=== PATIENT | male | born 1970 | race African-American/Black ===

== ENCOUNTER → 2016-07-12 | Outpatient (REF) ==
[~2016-07-12] MED LIST: ARIP1TAB4 PO; DRIS50002 PO; FLUO20CA8 PO; FLUO20CA9 PO; PRAZ2CAP PO; SERO1TAB PO; ZOLO50TA PO
--- NOTE | 2016-07-13 03:25 | REP ---
Clinical: Pain and disability. Technique: AP, lateral, coned-down views of the lumbar spine. Findings: Three views of the lumbosacral spine demonstrate satisfactory alignment and lordosis without acute fracture / compression injury or subluxation. Age-related changes are appreciated without significant degenerative disc osteophyte complex by radiographic evaluation. Impression: Relatively normal age-related changes. No acute fracture / compression injury or subluxation. Signed by Arjun Slade MD 07/13/2016 03:16 A
--- NOTE | 2016-07-13 04:02 | REP ---
Clinical: Pain . Technique: Internal rotation, external rotation, and Y view. Findings: No acute fracture or dislocation. The acromioclavicular and glenohumeral joints are intact. No periarticular calcifications or degenerative changes are appreciated. Sub acromial space is normal. Surrounding soft tissues are unremarkable. Impression: Normal left shoulder radiographs. Signed by Arjun Slade MD 07/13/2016 03:53 A
== END ==
LOC: M SMT 13:06
PROVIDERS: ATTEND Internal Medicine
DX: M54.5 Low back pain (principal)